=== PATIENT | male | born 1975 | race Caucasian/White ===

== ENCOUNTER 2017-10-01 18:57 | Emergency (ER) | payer MEDICAID, OTHER ==
[~2017-10-01] VITALS: Ht 162.6 cm; Wt 109.0 kg
[2017-10-01] MEDS: ACETAMINOPHEN 325MG TABLET PO STA (22:29)
[2017-10-01] MEDS: KETOROLAC 30MG/ML VIAL IV STA (22:29)
[2017-10-01] MEDS: SODIUM CHLORIDE 0.9% 1000ML BAG (SEPSIS BOLUS) IV ONE (22:30)
[2017-10-01 23:38] LABS: CHLORIDE 102 mEq/L (98-107)
[2017-10-01 23:40] LABS: HEMATOCRIT. 47.4 % (42.0-52.0); HEMOGLOBIN. 15.9 g/dL (14.0-18.0); MEAN CORPUSCULAR HEMOGLOBIN 29.4 pg (28.0-32.0); MEAN CORPUSCULAR VOLUME 87.7 fL (80.0-94.0); MEAN PLATELET VOLUME 8.4 fl (7.4-10.4); PLATELET 264 x1000/uL (130-400); RED BLOOD CELL COUNT 5.41 mill/uL (4.7-6.1); RED CELL DISTRIBUTION WIDTH 13.3 % (11.6-14.6)
[2017-10-01 23:43] LABS: INR 1.1
[2017-10-01 23:46] LABS: CARBON DIOXIDE 22 mEq/L (21-32)
[2017-10-02 01:31] LABS: PLATELET ESTIMATE NORMAL
[2017-10-02 03:51] VITALS: BP 127/82
== END 2017-10-02 04:07 | disposition home or self-care (01) ==
LOC: ER 18:57
DX: J11.1 Influenza due to unidentified influenza virus with other respiratory manifestations (principal); R55 Syncope and collapse; Z98.890 Other specified postprocedural states
CPT/HCPCS: 36415; 71010; 80053; 83605; 85025; 85610; 87040; 87804; 93005; 96361; 96374; 99285; J1885; J7030; Z7610